=== PATIENT | female | born 1975 | race Caucasian/White ===

== ENCOUNTER → 2021-09-01 | Emergency (ER) | payer MEDICAID ==
[~2021-09-01] MED LIST: HYDR-4353 PO
== END | disposition left against medical advice (07) ==
LOC: ER 23:10
DX: Z53.21 Procedure and treatment not carried out due to patient leaving prior to being seen by health care provider (principal)

== ENCOUNTER 2022-09-30 10:04 | Emergency (ER) | payer MEDICAID ==
[~2022-09-30] VITALS: Ht 162.6 cm; Wt 75.0 kg
[2022-09-30 10:08] VITALS: BP 128/90
[2022-09-30] MEDS ORDERED: DOXY100C77 PO (10:45)
[2022-09-30] MEDS ORDERED: MUPI22OI30 TOP (10:45)
== END 2022-09-30 11:06 | disposition home or self-care (01) ==
LOC: ER 10:04
DX: R21 Rash and other nonspecific skin eruption (principal); E03.9 Hypothyroidism, unspecified; F41.9 Anxiety disorder, unspecified; F12.90 Cannabis use, unspecified, uncomplicated; Z98.890 Other specified postprocedural states; Z88.0 Allergy status to penicillin; Z88.8 Allergy status to other drugs, medicaments and biological substances; Z79.2 Long term (current) use of antibiotics; Z79.899 Other long term (current) drug therapy
CPT/HCPCS: 99283

== ENCOUNTER 2023-04-10 16:18 | Emergency (ER) | payer MEDICAID ==
[~2023-04-10] VITALS: Ht 162.6 cm; Wt 82.8 kg
[2023-04-10 16:41] VITALS: BP 120/87; PULSE 79; RESP 16; O2SAT 98
[2023-04-10] MEDS ORDERED: ibuprofen tablet 400 MG TABLET PO ONE (18:30)
[2023-04-10] MEDS ORDERED: IBUP-1984 PO (18:39)
== END 2023-04-10 19:05 | disposition home or self-care (01) ==
LOC: ER 16:18
DX: S93.402A Sprain of unspecified ligament of left ankle, initial encounter (principal); F17.200 Nicotine dependence, unspecified, uncomplicated; F12.90 Cannabis use, unspecified, uncomplicated; Z98.891 History of uterine scar from previous surgery; Z88.0 Allergy status to penicillin; Z88.8 Allergy status to other drugs, medicaments and biological substances; Z79.899 Other long term (current) drug therapy; W10.8XXA Fall (on) (from) other stairs and steps, initial encounter; Z91.81 History of falling; Y93.01 Activity, walking, marching and hiking; Y92.89 Other specified places as the place of occurrence of the external cause; Y99.8 Other external cause status
CPT/HCPCS: 73610; 99284; L4360

== ENCOUNTER 2023-09-23 17:09 | Emergency (ER) | payer SELFPAY ==
[~2023-09-23] VITALS: Ht 162.6 cm; Wt 84.5 kg
[2023-09-23] MEDS ORDERED: CEPH-585 PO (18:42)
[2023-09-23] MEDS ORDERED: SULF1TAB49 PO (18:42)
[2023-09-23 18:54] VITALS: BP 130/66; PULSE 88; RESP 18; TEMP 99.2; O2SAT 96
== END 2023-09-23 18:56 | disposition home or self-care (01) ==
LOC: ER 17:10
DX: S50.362A Insect bite (nonvenomous) of left elbow, initial encounter (principal); L03.114 Cellulitis of left upper limb; E03.9 Hypothyroidism, unspecified; F41.9 Anxiety disorder, unspecified; Z88.0 Allergy status to penicillin; Z79.899 Other long term (current) drug therapy; W57.XXXA Bitten or stung by nonvenomous insect and other nonvenomous arthropods, initial encounter; Y93.89 Activity, other specified; Y92.89 Other specified places as the place of occurrence of the external cause; Y99.8 Other external cause status
CPT/HCPCS: 99283

== ENCOUNTER 2024-11-04 08:26 | Emergency (ER) | payer MEDICAID ==
[~2024-11-04] VITALS: Ht 162.6 cm; Wt 88.5 kg
[2024-11-04 08:30] VITALS: BP 157/90; TEMP 98.5
[2024-11-04] MEDS ORDERED: AZIT250T83 PO (09:09)
[2024-11-04] MEDS ORDERED: ALBU8HFA INH (09:11)
[2024-11-04] MEDS ORDERED: PRED10TA23 PO (09:11)
[2024-11-04] MEDS ORDERED: ERYT1OIN6 EACHEYE (09:12)
[2024-11-04] MEDS: ipratropium/albuterol 3ml nebule NEB ONE (09:22)
[2024-11-04 09:24] VITALS: PULSE 85; PULSE 91; RESP 16; O2SAT 100; O2SAT 98
== END 2024-11-04 09:33 | disposition home or self-care (01) ==
LOC: ER 08:26
DX: J32.9 Chronic sinusitis, unspecified (principal); H10.89 Other conjunctivitis; J22 Unspecified acute lower respiratory infection; F12.90 Cannabis use, unspecified, uncomplicated; F41.9 Anxiety disorder, unspecified; E07.9 Disorder of thyroid, unspecified; E03.9 Hypothyroidism, unspecified; Z88.0 Allergy status to penicillin; Z88.8 Allergy status to other drugs, medicaments and biological substances; Z79.899 Other long term (current) drug therapy; Z98.890 Other specified postprocedural states; Z20.822 Contact with and (suspected) exposure to COVID-19
CPT/HCPCS: 36415; 87502; 87503; 87811; 94640; 94760; 99283

== ENCOUNTER 2025-03-12 16:18 | Inpatient (IN) | payer MEDICAID ==
[~2025-03-12] VITALS: Ht 162.6 cm; Wt 100.0 kg
--- NOTE | 2025-03-12 16:47 | RADIOLOGY REPORT ---
CHEST RADIOGRAPH Indication: CP Technique: Single frontal view of the chest was obtained Comparison: None FINDINGS: Lines and Tubes: None Lungs: No focal consolidation. Pleura: No effusion. No pneumothorax. Cardiomediastinal contours: Heart size is within normal limits. Mild prominence of the pulmonary liu nk. Bones: No acute osseous abnormality. IMPRESSION: prominence of the pulmonary trunk. Correlate for pulmonary arterial hypertension. Otherwise, no acu te cardiopulmonary disease
--- NOTE | 2025-03-12 16:55 | Physician Documentation ---
History of Present Illness ~ Chief Complaint: Extremity Swelling Stated Complaint: SWELLING IN LEGS/FINGER Time Seen by MD: 19:24 Primary Medical Doctor: [facility] This is a 49-year-old female who presents with progressively worsening edema to all extremities along with worsening shortness of breath over the last several months. Patient reports shortness of breath is worse with exertion, though patient reports no shortness of breath with lying flat. Patient reports no chest pain or cardiac history. History as above. Patient presents to the emergency room with gradual increase of shortness of breath in bilateral dependent edema. She does not have a primary care provider. She does smoke. She denies any other history. Positive family history of heart disease. Tetanus witin 5 years: Yes Medication Reconciliation Allergies: Coded Allergies: Penicillins (Verified Allergy, Unknown, TONGUE SWELLING, 03/12/25) pregabalin (Verified Allergy, Unknown, hives, 03/12/25) Scheduled PRN Hydrocodone Bit/Acetaminophen ([place] 10-325 Tablet), 1 TAB PO Q6H PRN for pain Past Medical History Past Medical History: No Pertinent History, Hypothyroidism, Thyroid (unspecified), Anxiety Past Surgical History: Alcohol Use: None Drug Use: marijuana Lives In: Home Review of Systems ROS All review of systems negative except as per HPI Physical Exam Vital Signs: Temperature: 97.8, Source: Temporal, Heart Rate: 89, Respiratory Rate: 18, BP: 159/78, Pulse Oximetry: 94, Weight: 100.400 Physical Exam General: Patient is awake, alert, oriented x4 , anxious, tearful Head: Normocephalic and atraumatic. Eyes: Conjunctival normal. EOMI. PERRL. ENT: Mucous membranes moist. Neck: Supple, trachea is midline. Chest: Clear to auscultation bilaterally without rales, rhonchi, or wheezes. There is no accessory muscle use or retractions. Cardiac: RRR without murmurs, gallops, or rubs. Abd: Soft, nondistended, nontender, with normoactive bowel sounds. No guarding, rebound, or rigidity. Extremities: Normal strength. Normal range of motion. Significant dependent tense edema bilaterally Progress Results/Orders Results/Orders Orders - CHRIS VIRAMONTES MD Hospitalist (03/12/25 19:43) Fill Out Med Reconciliation (03/12/25 19:43) Vital Signs 03/12/25 03/12/25 03/12/25 16:28 18:04 18:15 Temp 97.8 97.8 Pulse 89 74 Resp 18 12 16 B/P (MAP) 159/78 128/99 (109) Pulse Ox 94 96 Laboratory Tests Test 03/12/25 16:44 03/12/25 18:11 03/12/25 19:33 White Blood Count 10.6 Red Blood Count 5.08 Hemoglobin 15.8 Hematocrit 48.2 H Mean Corpuscular Volume 94.9 Mean Corpuscular Hemoglobin 31.2 H Mean Corpuscular Hemoglobin Concent 32.8 L Red Cell Distribution Width 14.5 Platelet Count 271 Mean Platelet Volume 7.8 Neutrophils (%) (Auto) 71.5 Lymphocytes (%) (Auto) 20.8 L Monocytes (%) (Auto) 6.0 Eosinophils (%) (Auto) 0.6 Basophils (%) (Auto) 1.1 H Neutrophils # (Auto) 7.6 Lymphocytes # (Auto) 2.2 Monocytes # (Auto) 0.6 Eosinophils # (Auto) 0.1 Basophils # (Auto) 0.1 CBC Comment Sodium Level 139 Potassium Level 4.1 Chloride Level 105 Carbon Dioxide Level 26.5 Anion Gap 8 Blood Urea Nitrogen 12 Creatinine 1.06 H Estimated GFR/1.73 m2 55 BUN/Creatinine Ratio 11.3 Glucose Level 115 H Calcium Level 8.8 Troponin I High Sensitivity 18 18 19 Pro-B-Type Natriuretic Peptide 3429 H Albumin 3.2 L Chemistry Comments Troponin I High Sens Percent Delta 0 5 Troponin I Hi Sens Absolute Change 0 1 EKG/XRAY/CT/US/VASC/MRI EKG : Additional Comment EKG interpreted by myself shows time of 1809, rate 76, sinus rhythm, normal axis, no ST changes Chest X-Ray : Additional Comments Exam: CHEST,SINGLE VIEW CHEST RADIOGRAPH Indication: CP Technique: Single frontal view of the chest was obtained Comparison: None FINDINGS: Lines and Tubes: None Lungs: No focal consolidation. Pleura: No effusion. No pneumothorax. Cardiomediastinal contours: Heart size is within normal limits. Mild prominence of the pulmonary trunk. Bones: No acute osseous abnormality. IMPRESSION: prominence of the pulmonary trunk. Correlate for pulmonary arterial hypertension. Otherwise, no acute cardiopulmonary disease Medical Decision Making Findings Patient presented to the emergency room with swelling and shortness of breath as per HPI. Differentials include but are not limited to CHF, cellulitis, DVT, venous insufficiency therefore emergent labs and imaging indicated. Significant elevation of patient's BNP along with her complaints of shortness of breath I do believe she is developing congestive heart failure. Lasix initiated. She does not have a primary care and he had not feel he would do well on outpatient basis. Departure Admitted to Inpatient Unit: yes, to hospitalist Impression: Primary Impression: New onset of congestive heart failure Condition: Guarded Referrals: NO PRIMARY CARE PROVIDER (PCP) Signature Scribe Signature: No scribe Attestation: The note accurately reflects work and decisions made by me.Chris iVramontes MD 03/12/25 19:42 [facility] VALDE[facility] Mar 12, 2025 16:55 CHRIS VIRAMONTES MD Mar 12, 2025 19:42
[2025-03-12 17:45] LABS: MEAN PLATELET VOLUME 7.8 FL (7.4-10.4); RED CELL DISTRIBUTION WIDTH 14.5 % (11.5-14.5)
[2025-03-12 18:05] LABS: CREATININE 1.06 MG/DL (0.40-0.90); PRO BRAIN NATRIURETIC PEPTIDE 3429 PG/ML (0-125); TOTAL CARBON DIOXIDE 26.5 MMOL/L (24-32); eCRCL 55 ML/MIN; eGFR 55 ML/MIN
--- NOTE | 2025-03-12 18:11 | ELECTROCARDIOGRAPH REPORT ---
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
[2025-03-12 22:09] VITALS: BP 132/97; PULSE 104; TEMP 97.7; O2SAT 98
[2025-03-12 22:16] VITALS: RESP 19; O2SAT 98
[2025-03-12] MEDS ORDERED: magnesium sulf-water 4G/100mL 100 ML IV PRN (22:30)
[2025-03-12] MEDS ORDERED: magnesium hydroxide 30ml (MOM) UD suspension PO PRN (22:30)
[2025-03-12] MEDS ORDERED: mag hydrox/Alum hydrox/simeth 30ml oral suspension PO PRN (22:30)
[2025-03-12] MEDS ORDERED: PERFLUTREN PROTEIN-A MICROSPHR (Optison) 0.22 MG/ML 3ML VIAL IV PRN (22:30)
[2025-03-12] MEDS ORDERED: HYDROcodone/acetaminophen 5mg/325mg tablet PO PRN (22:30)
[2025-03-12] MEDS ORDERED: potassium Cl 20 mEq SR tablet PO PRN ×2 (22:30)
[2025-03-12] MEDS ORDERED: magnesium sulf-water 2g/50mL 50 ML IV PRN (22:30)
[2025-03-12] MEDS ORDERED: ondansetron/PF 4mg/2ml inj IV PRN (22:30)
[2025-03-12] MEDS ORDERED: potassium Cl 40MEQ/1/2NS 520ml 520 ML IV PRN (22:30)
[2025-03-12] MEDS ORDERED: magnesium Cl slow-release 64mg tablet PO PRN (22:30)
--- NOTE | 2025-03-12 22:39 | HISTORY AND PHYSICAL-Residence ---
History & Physical Providers to CC Resident Creating Document: GABRIEL ZUNIGA, RES CC: TIO LOPEZ MD ~ History of Present Illness Primary Medical Doctor: [facility] Reason for Admit\Complaint: Swollen legs History of Present Illness A 49-year-old noncompliant female with past medical history of hypothyroidism presented to the ED in view of swelling of bilateral legs since several weeks. Patient endorses shortness of breaths on walking for less than 50 ft since several weeks that has gradually worsened. Patient endorses palpitations that randomly starts as a flutter associated with anxiety episodes. Patient endorses dizziness, feels like passing out and has blacking of the lesion. Patient endorses nausea, fatigue, dry cough. Patient had gained weight in the recent time and can not fit in her previous shoe size or closed size. Patient denies chest pain, orthopnea, PND. Patient has stopped taking levothyroxine over a year ago. 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 Primary care is at [facility] Smoking: Non-Smoker Alcohol Use: None Drug Use: Marijuana Lives In: Home ROS ROS All other systems reviewed in full and negative except for the pertinent positives mentioned in the HPI Exam Vitals: Vital Signs Date Time Temp Pulse Resp B/P (MAP) Pulse Ox O2 Delivery O2 Flow Rate FiO2 03/12/25 22:16 19 98 Room Air 03/12/25 22:09 97.7 104 132/97 (109) General: General: Obese woman, Alert, awake, oriented, not in acute distress HEENT: PERRLA, no icterus, pallor, lymphadenopathy, carotid bruit Respiratory system: Bilateral vesicular breath sounds heard, bilateral basal crackles heard CVS: S1-S2 heard, grade 3/6 holosystolic murmur present in the mitral tricuspid area GI: Soft, nontender, no organomegaly, no guarding/rigidity, bowel sounds present Neuro: No focal neurological deficits present Extremities: Bilateral 3+ pitting edema to the knee, pustule on the right lower extremity Skin: Warm and dry Diagnostic Data Last Recorded Lab Results: 03/12/25 1644 03/12/25 1644 Advance Care Planning Advanced Care plannin - 30 Minutes (I spent 20 minutes discussing various resuscitative measures and the patient decided to be full code) Additional Plan Assessment: 49-year-old female with noncompliance and hypothyroidism presented to the ED in view of bilateral lower extremity swelling. Patient is admitted for the evaluation management of new onset heart failure. Plan: Possible new onset heart failure, pending echo ACC Stage C/ NYHA Class III Elevated proBNP Possible underlying COPD, undiagnosed Chest x-ray: prominence of the pulmonary trunk. Correlate for pulmonary arterial hypertension. Follow up with A1c, lipid panel, echo, CT chest Received one dose of IV Lasix 60 mg Evaluate for pulmonary arterial hypertension and right heart failure Continue IV Lasix 60 mg b.i.d. Consider optimization with GDM T Strict Is&Os Sodium restricted diet Fluid restriction to 1.5 L Patient might benefit from Cardiology consultation in view of new onset heart failure and based on ejection fraction and wall motion changes patient might also require angiogram Hypothyroidism, noncompliant Follow up with TSH Not on any home levothyroxine Used to be on 75 mcg, stopped one year ago Started on 50 mcg in view of cardiologic manifestations Prerenal BRANDIN probably secondary to renal tubular stasis Elevated creatinine Continue to monitor BMP Code status: Full code Diet: Heart healthy, sodium restricted DVT prophylaxis: Heparin 5000 subQ b.i.d. Disposition: Admit to PCU, follow up with repeat echo and consider optimization with GDMT Gabriel Zuniga MD Internal Medicine, PGY 2 Date of Service: Mar 12, 2025 Billing Provider: TIO LOPEZ MD Common Visit Codes: 54655-LARZOLI INP/OBS CARE (HIGH) Assessment/Plan Assessment Evaluated with the help of residents Discussed the gold e with them Reviewed notes by Dr.Siva Trev ZAMORA Agree with her assessments and plans GABRIEL ZUNIGA, RES Mar 12, 2025 22:39 TIO LOPEZ MD Mar 13, 2025 04:04
[2025-03-12] MEDS: furosemide 10 MG/1 ML 10ml inj IV ONE (23:16)
[2025-03-12 23:38] LABS: PRO BRAIN NATRIURETIC PEPTIDE 2948.0 PG/ML (0-125)
[2025-03-13] VITALS (9 sets, daily range): BP systolic 101–117; BP diastolic 64–76; PULSE 65–91; RESP 10–21; TEMP 97.3–98.8; O2SAT 94–99
[2025-03-13 06:44] LABS: MEAN PLATELET VOLUME 7.8 FL (7.4-10.4); RED CELL DISTRIBUTION WIDTH 14.3 % (11.5-14.5)
[2025-03-13] MEDS: levoTHYROXINE 25mcg tablet PO SCH (07:00)
[2025-03-13 07:01] LABS: CHOL/HDL RATIO 4.0 (0.00-4.99); CREATININE 0.98 MG/DL (0.40-0.90); LDL CHOLESTEROL 104 MG/DL (50-100); TOTAL CARBON DIOXIDE 26.8 MMOL/L (24-32); eCRCL 60 ML/MIN; eGFR 60 ML/MIN
[2025-03-13] MEDS: K and/or MAG REPLACEMENT MC SCH (07:45)
[2025-03-13] MEDS: docusate sod 100mg capsule PO SCH (07:48)
[2025-03-13] MEDS: heparin, porcine 5000 units/ml vial SQ SCH (07:49)
[2025-03-13] MEDS: furosemide 10 MG/1 ML 10ml inj IV SCH ×2 (08:24→11:19)
--- NOTE | 2025-03-13 10:54 | RADIOLOGY REPORT ---
Procedure: CT CT CHEST Reason for study/Clinical History: COPD/interstitial lung disease Comparison Study: None TECHNIQUE: Multidetector CT of the chest was performed from the lung apices to the upper abdomen with out the use of intravenous contract. Axial, coronal and sagittal multiplanar reformats were performed . Radiation Dose Information: CT Dose: CTDI volume is 17.9 mGy. Dose-length product is 619 mGy*cm The dose indicators for CT are the volume Computed Tomography (CT) Dose Index (CTDIvol) and the Dose Length Product (DLP), and are measured in units of mGy and mGy-cm, respectively. These indicators are not patient dose, but values generated from the CT scanner acquisition factors. The report includes radiation exposure data for exposures received during this examination. FINDINGS: Lower neck: Unremarkable. Lungs: No focal consolidation. No suspicious pulmonary nodule. Heart/Vascular Structures: Cardiomegaly. Enlarged main pulmonary artery measures 4.4 cm. Lymph Nodes: No adenopathy Pleura: No pleural effusion or significant pneumothorax. Musculoskeletal: No acute osseous abnormality. Soft tissues: Normal. Upper abdomen: Innumerable bilobar hepatic hypoattenuating lesions suspicious for metastatic disease. IMPRESSION: No acute intrathoracic abnormality. Innumerable bilobar hepatic hypoattenuating lesions suspicious for metastatic disease. Radiation optimization: All CT scans at this facility use at least one of these dose optimization marifer hniques: automated exposure control mA and/or kV adjustment per patient size (includes targeted exam s where dose is matched to clinical indication) or iterative reconstruction.
[2025-03-13] MEDS ORDERED: iohexol 300mg/ml 100ml inj. ONE (11:45)
[2025-03-13 12:37] LABS: LEUKOCYTE ESTERASE ,URINE NEGATIVE (Neg); NITRITES, URINE NEGATIVE (Neg); OCCULT BLOOD,URINE NEGATIVE (Neg)
[2025-03-13 12:43] LABS: UA COLLECTION TYPE VOIDED
--- NOTE | 2025-03-13 12:45 | CONSULTATION REPORT ---
History of Present Illness Providers to CC CC: PATRICK CASTELLANOS MD ~ Reason for Admit\Admit Dx: Cardiology consultation Refering MD: BEN History of Present Illness This is a 49-year-old female who presented secondary to shortness for breath and lower extremity edema. She states she has had edema that has been worsening as well as shortness for breath. Shortness for breath has been ongoing for months. She reports dyspnea on exertion with walking short distances on flat ground. NYHA class three symptoms. She furthermore has complaints of her fingers turning more purple in color onset was June 2024. She follows with [facility]. When asked, she did admit to daily smoking of methamphetamine. She is very tearful during her exam. Allergies: Coded Allergies: Penicillins (Verified Allergy, Unknown, TONGUE SWELLING, 03/12/25) pregabalin (Verified Allergy, Unknown, hives, 03/12/25) Active prescriptions Lasix 40 mg IV b.i.d. Levothyroxine 50 mcg daily Heparin 5000 units subQ q.12 hours Home Medications Home Medications Active Past Medical History Medical History Comment Hypothyroidism Past Surgical History Surgical History Comment No surgical history Past Family History Family History: CAD Past Social History Social History Comment Patient reports smoking tobacco products. She uses meth daily by smoking it. Denies ever using IV drugs. Does not drink alcohol. Physical Exam Last Vital Signs Recorded: RN Vital Signs have been reviewed: Yes, Temperature: 98.5, Source: Oral, Heart Rate: 87, Respiratory Rate: 17, BP: 108/68, Pulse Oximetry: 97, Weight: 100.000 Physical Exam General: Awake, alert, oriented. No apparent distress Neck: Supple. Normal range of motion. No JVD Respiratory: Lungs are clear to auscultation bilaterally. No respiratory distress. Chest: Normal shape and size. No accessory muscle use. Cardiovascular: Regular rate and rhythm. S1-S2. +murmur LSB. no gallop, rub. Gastrointestinal: Abdomen is soft. Nontender to palpation. Bowel sounds present. Extremities: + edema to the extremities that has about plus one. There is also some sores noted to the right lower extremity. Fingers with peripheral discoloration. Radial pulses plus two. Neurologic: Alert and oriented x4. Nonfocal Psychiatric: Normal mood and affect. Skin: Normal color. Warm and dry. Review of Systems ROS Patient complains of shortness for breath, dyspnea on exertion and worsening lower extremity edema. Skin discoloration to the fingers. Results EKG EKG EKG sinus rhythm peaked T-waves consistent with RA enlargement. Nonspecific ST changes Echocardiogram Echocardiogram Preliminary echocardiogram with preserved LVEF. RV severely dilated with moderately reduced function. RVSP 125 mm of mercury with severe TR. Diagram Lab Result Diagram: 03/13/25 0532 03/13/25531 Assessment/Plan Additional Plan Right ventricular failure Suspected severe pulmonary hypertension --recommend rule out pulmonary embolism given shortness for breath and RV failure. This was discussed with primary physician, Dr. Lara. Patient has already had a CTA of the abdomen pelvis just prior to consultation. Timing of PE evaluation per Dr. Lara --suspect pulmonary hypertension. May be pulmonary arterial hypertension secondary to methamphetamine use. She will need further outpatient workup. Labs: CHOLO, RF, hiv, hepatitis serology. needs PFTs +DLCO. She was educated that she absolutely needs to quit using methamphetamine. Risks of reviewed. She will need outpatient referral to [facility], [facility] as it is the closest. --continue Lasix. Strict intake and output. Keep euvolemic. Question of liver lesions. Dedicated CTA is pending. --hospitalist managing. Case discussed with Dr. Roxanna Castellanos. In agreement with above. Supervising MD Supervising Physician: JARED Conn NP Mar 13, 2025 12:45
[2025-03-13 12:49] LABS: URINE AMPHETAMINE SCREEN POSITIVE (Neg); URINE BARBITUATE SCREEN NEGATIVE (Neg); URINE BENZODIAZEPINES SCREEN NEGATIVE (Neg); URINE COCAINE SCREEN NEGATIVE (Neg); URINE METHADONE SCREEN NEGATIVE (Neg); URINE OPIATE SCREEN NEGATIVE (Neg); URINE PHENCYCLIDINE SCREEN NEGATIVE (Neg)
[2025-03-13 12:52] LABS: MUCUS STRANDS FEW /LPF (Neg); SQUAMOUS EPITHELIAL CELL,UR FEW /LPF (FEW)
--- NOTE | 2025-03-13 13:14 | RADIOLOGY REPORT ---
Exam: CT CT ABDOMEN PELVIS W/ IV CONTRAST History: abnormal CT chest with lesions in liver Comparison Study: CT chest 03/13/2025 TECHNIQUE: Multidetector CT of the abdomen pelvis was performed with contrast in arterial and portal venous phases. Axial, coronal and sagittal multiplanar reformats were obtained from the axial data se t by the technologist. Radiation Dose Information: CT Dose: CTDI volume is 31.44 mGy. Dose-length product is 2460.18 mGy*cm FINDINGS: Mild hepatomegaly. The heterogeneous appearance of the liver noted on the noncontrast CT chest is red emonstrated but less conspicuous on the arterial and venous phases without any areas of masslike enha ncement. Spleen, gallbladder, pancreas and adrenal glands unremarkable. Kidneys , ureters and urinary bladder unremarkable. Uterus and adnexa unremarkable. Stomach is unremarkable. Mild wall Thickening of proximal small bowel loops. Remainder of the small bowel loops unremarkable. Appendix is not definitely visualized. Partial distention of the rectum. Otherwise, the large bowel is unremarkable. No evidence of intraperitoneal free air or free fluid. No evidence of aortic aneurysm or dissection. No significant lymphadenopathy. Mild body wall edema. Small fat containing umbilical hernia. Bilateral L5 chronic pars defect with gr erin 2 anterolisthesis of L5 on S1. Grade 1 anterolisthesis of L4 on L5. IMPRESSION: The lung bases are clear. Heart size is within normal limits. Trace pericardial effusion. Heterogene ous appearance of the liver with no discrete enhancing masses noted on the arterial and portal venous phases. Finding may be from fatty infiltration. MRI with and without contrast should be considered for further evaluation. Mild wall Thickening of proximal small bowel loops which may be due to inadequate distention with ent eritis not excluded. Mild hepatomegaly.
--- NOTE | 2025-03-13 13:41 | CARDIOLOGY REPORT ---
APPROVED REPORT EXAM: Comprehensive 2D, Doppler, and color-flow Echocardiogram. 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 143.6 cm/s AoV VTI 21.7 cm AO Peak GR. 8.2 mmHg AO Mean GR. 5 mmHg LVOT VTI 17.20 cm LVOT Peak Ceasar. 108.5 cm/s JUAN(VTI)/BSA 2.23 cm2/m2 JUAN (VTI) 2.23 cm2 Mitral Valve MV E Velocity 40.1 cm/s MV Peak Gr. 1 mmHg MV DECEL TIME 212 ms MV A Velocity 78.4 cm/s MV PHT 64 ms E/A Ratio 0.5 MVA (PHT) 3.44 cm2 MV VMax55.5 cm/s Tricuspid Valve TR P. Velocity 525 cm/s RAP ESTIMATE 15 mmHg TR Peak Gr. 110 mmHg RVSP 125 mmHg LEFT VENTRICLE Normal LV size and function. Moderate concentric hypertrophy. Septal flattening consistent with RV pr essure/volume overload. Overall LVEF is 65%. RIGHT VENTRICLE RV is severely dilated in size with at least moderatey reduced function. Estimated PA systolic pressu re of 125 mm of mercury. ATRIA The left atrium size is normal. AORTIC VALVE Trileaflet AV appears mildly sclerotic without stenosis. No insufficiency. MITRAL VALVE Mild MV annular calcification without stenosis.Trace regurgitation. TRICUSPID VALVE TV appears structurally normal with severe regurgitation with flow reversal. PULMONIC VALVE Normal PV without stenosis, physiologic insufficiency. GREAT VESSELS The aortic root is normal in size. IVC is dilated and collapses greater than 50% with inspiration. PERICARDIUM Normal pericardium. No effusion. Other Information Study Quality: Adequate, but difficult apicals due to displacement from RVE. Conclusion Overall LVEF is 65%. Normal LV size and function. Moderate concentric hypertrophy. Septal flattening consistent with RV p ressure/volume overload. Trileaflet AV appears mildly sclerotic without stenosis. No insufficiency. Mild MV annular calcification without stenosis.Trace regurgitation. TV appears structurally normal with severe regurgitation with flow reversal. Normal pericardium. No effusion.
--- NOTE | 2025-03-13 17:02 | RADIOLOGY REPORT ---
Indication: SOB , suspected PE Technique: CT axial images of the chest are obtained with intravenous contrast per CT angiogram prot ocol. Coronal and sagittal reformats were obtained. Radiation Dose Information: CTDI volume is 21.5 mGy. Dose-length product is 718 mGy*cm Comparison: 03/13/2025 CT chest without contrast, CT abdomen pelvis with contrast FINDINGS: No filling defect within the main left right pulmonary arteries. Enlargement of the main pulmonary ar junie measuring 3.9 cm. Reflux of contrast into the hepatic vein/IVC. Trachea patent. No pneumothorax. No pulmonary airspace consolidation. No pleural effusion. Heart normal in size. Tiny pericardial effusion. No supraclavicular or axillary lymphadenopathy. There is no aggressive osseous process. Heterogeneous appearance of the liver, hepatic steatosis. IMPRESSION: No evidence for large pulmonary embolism. Enlarged main pulmonary artery and reflux of contrast into hepatic veins and IVC suggesting underlyin g right heart dysfunction. Correlate with echocardiography. Heterogeneous appearance of the liver and hepatic steatosis. Recommend multiphasic MRI abdomen with and without contrast to further characterize given the previous findings of the CT chest without cont rast and CT abdomen pelvis with contrast
--- NOTE | 2025-03-13 19:46 | PROGRESS NOTE ---
Daily Progress Note Providers to CC ~ Antibiotic Timeout Antibiotic Ordered?: No Subjective Patient was seen in her room she was on room air saturating well. She came due to her concern regarding leg swelling diagnosed with new onset congestive heart failure. CT chest results showed Innumerable bilobar hepatic hypoattenuating lesions suspicious for metastatic disease. Due to which CT abdomen and pelvis ordered which was unremarkable for any suspicious metastatic lesions over liver area. Cardiology consult requested from Cardiology team and they evaluated the patient for new onset congestive heart failure. Patient's urine drug screen positive for meth. Objective Vital Signs Date Time Temp Pulse Resp B/P (MAP) Pulse Ox O2 Delivery O2 Flow Rate FiO2 03/13/25 15:00 97.6 77 15 104/64 (77) 94 Room Air Result Diagram: 03/13/25 0532 03/13/25 0532 General-patient not in any acute distress, alert awake, ill-appearing , obese HEENT-atraumatic normocephalic, neck supple without elevated JVD, no thyromegaly or carotid bruit. No lymphadenopathy bilaterally. Eyes-no icterus or pallor seen in eyes Chest- decreased lung sounds to auscultation bilaterally over lung base, breathing nonlabored no tachypnea, no wheezing, Heart-S1-S2 normal, regular heart rate no murmur Abdomen bowel sounds positive on auscultation, soft nondistended nontender no guarding, no rigidity Skin no active skin rash Neurology-grossly intact, nonfocal alert awake oriented Extremity- 1 plus pedal edema bilaterally , able to move all 4 extremities Psychiatry - patient is not confused or agitated cooperated during physical examination Coagulation Studies Laboratory Tests Test 03/13/25 15:37 D-Dimer 0.73 MG/L FEU (0-0.50) H D-Dimer Comment Problem\\Assessment\\Plan 49-year-old female with noncompliance and hypothyroidism presented to the ED in view of bilateral lower extremity swelling. Patient is admitted for the evaluation management of new onset heart failure. Plan: Possible new onset heart failure, pending echo ACC Stage C/ NYHA Class III Elevated proBNP Possible underlying COPD, undiagnosed Chest x-ray: prominence of the pulmonary trunk. Correlate for pulmonary arterial hypertension. Follow up with A1c, lipid panel, echo, CT chest Received one dose of IV Lasix 60 mg Evaluate for pulmonary arterial hypertension and right heart failure Continue IV Lasix 60 mg b.i.d. Consider optimization with GDM T Strict Is&Os Sodium restricted diet Fluid restriction to 1.5 L Cardiology consultation requested from Dr. Roxanna Castellanos and Cardiology team who evaluated the patient suspect right ventricular failure, severe pulmonary hypertension. Recommended rule out pulmonary embolism given the shortness of breaths and right ventricular failure.suspect pulmonary hypertension. As per cardiology team" May be pulmonary arterial hypertension secondary to methamphetamine use. She will need further outpatient workup. Labs: CHOLO, RF, hiv, hepatitis serology. needs PFTs +DLCO. She was educated that she absolutely needs to quit using methamphetamine. Risks of reviewed. She will need outpatient referral to Pulmonary hypertension Center, likely [facility] as it is the closest. --continue Lasix. Strict intake and output. Keep euvolemic." Hypothyroidism, noncompliant TSH 4.37 continue on 50 mcg in view of cardiologic manifestations Prerenal BRANDIN probably secondary to renal tubular stasis Elevated creatinine will Continue to monitor BMP Code status: Full code Diet: Heart healthy, sodium restricted DVT prophylaxis: Heparin 5000 subQ b.i.d. Patient's current condition is guarded we will continue to follow patient in a.m. Date of Service: Mar 13, 2025 Billing Provider: HERBERT WEBBER MD Common Visit Codes: [id number] INP/OBS CARE(HIGH) HERBERT WEBBER MD Mar 13, 2025 19:46
[2025-03-14 02:00] VITALS: BP 121/78; PULSE 79; RESP 13; TEMP 97.1; O2SAT 98
[2025-03-14 06:00] VITALS: BP 116/80; PULSE 77; RESP 17; TEMP 98; O2SAT 96
[2025-03-14 07:22] LABS: MEAN PLATELET VOLUME 7.7 FL (7.4-10.4); RED CELL DISTRIBUTION WIDTH 14.0 % (11.5-14.5)
[2025-03-14 07:51] LABS: CREATININE 1.16 MG/DL (0.40-0.90); TOTAL CARBON DIOXIDE 34.0 MMOL/L (24-32); eCRCL 51 ML/MIN; eGFR 50 ML/MIN
[2025-03-14 08:00] VITALS: RESP 17; O2SAT 96
[2025-03-14 11:00] VITALS: BP 120/77; PULSE 79; RESP 17; TEMP 97.7; O2SAT 97
[2025-03-14 15:00] VITALS: BP 105/80; PULSE 74; RESP 16; TEMP 98.4; O2SAT 95
[2025-03-14] MEDS ORDERED: LISI10TA27 PO (15:17)
[2025-03-14] MEDS ORDERED: FURO20TA4 PO (15:17)
[2025-03-14] MEDS ORDERED: LEVO125T8 PO (20:49)
--- NOTE | 2025-03-14 20:50 | DISCHARGE SUMMARY ---
Discharge Summary Providers to CC ~ Discharge Summary Admission Diagnosis: NEW ONSET HEART FAILURE Hospital Course DATE OF ADMISSION: March 12, 2025 DATE OF DISCHARGE: March 14, 2025 CBC TESTING DONE ON MARCH 14, 2025 WBC 8.3 HEMOGLOBIN 16.0 HEMATOCRIT 47.8 PLATELET COUNT 283. Serum chemistry done on March 14, 2025 sodium 143 potassium 3.8 creatinine 1.16 GFR 50 hemoglobin A1c 6.0 lactic acid 1.2 TSH 4.37 proBNP 2 948 mildly elevated triglyceride 141 LDL 104 total cholesterol 170. Toxicology screen positive for meth use. Urine testing negative for any UTI. Blood culture showed no growth Patient had CTA angiogram, abdomen and pelvis CT scan CT chest and echocardiogram and chest x-ray done during hospitalization. Please see the actual results in more details in electronic medical health records. All diagnostic workup reviewed and discussed with the patient Discharge Diagnosis\\Comment: new onset diastolic heart failure with preserved ejection Pulmonary HTN Possible underlying COPD, undiagnosed METH use Operations\\Procedures: None Consultants: Dr. Erendira Castellanos Complications: None Condition on DC: Stable New Medications: Furosemide (Furosemide) 20 Mg Tablet 1 TAB PO DAILY for 30 Days, #30 TAB 0 Refills Lisinopril (Lisinopril) 10 Mg Tablet 10 MG PO DAILY for 30 Days, #30 TAB Discharge Summary: 49-year-old female with noncompliance and hypothyroidism presented to the ED in view of bilateral lower extremity swelling. Patient is admitted for the evaluation management of new onset heart failure. Plan: new onset diastolic heart failure Possible underlying COPD, pulmonary hypertension Chest x-ray: prominence of the pulmonary trunk. Correlate for pulmonary arterial hypertension. we Followed up with A1c, lipid panel, echo, CT chest Received one dose of IV Lasix 60 mg Evaluated for pulmonary arterial hypertension and right heart failure Continue IV Lasix 60 mg b.i.d. Consider optimization with GDM T Strict Is&Os Sodium restricted diet Fluid restriction to 1.5 L Cardiology consultation requested from Dr. Roxanna Castellanos and Cardiology team who evaluated the patient suspect right ventricular failure, severe pulmonary hypert ension. Recommended rule out pulmonary embolism given the shortness of breaths and right ventricular failure.suspect pulmonary hypertension. As per cardiology team" May be pulmonary arterial hypertension secondary to methamphetamine use. She will need further outpatient workup. Labs: CHOLO, RF, hiv, hepatitis serology. needs PFTs +DLCO. She was educated that she absolutely needs to quit using methamphetamine. Risks of reviewed. She will need outpatient referral to Pulmonary hypertension Center, likely [facility] as it is the closest. --continue Lasix. Strict intake and output. Keep euvolemic." Hypothyroidism, noncompliant TSH 4.37 continue on 50 mcg in view of cardiologic manifestations Prerenal BRANDIN probably secondary to renal tubular stasis Elevated creatinine Continued to monitor BMP Patient's clinical condition improved she is getting discharged home in stable condition. She has been afebrile. Patient is seen and examined on the day of discharge discharge instructions provided to the patient. All labs diagnostic workup and discharge plan discussed with the patient in detail before her discharge. All questions and concerns answered to the best of my professional medical knowledgePatient needs follow-up with PCP, adoption specialist/microcomputer support specialist in outpatient setting in 1-2 weeks. Patient is strongly advised to stop meth and tobacco and risks explained. Activity as tolerated. General-patient not in any acute distress, alert awake, ill-appearing , obese HEENT-atraumatic normocephalic, neck supple without elevated JVD, no thyromegaly or carotid bruit. No lymphadenopathy bilaterally. Eyes-no icterus or pallor seen in eyes Chest- decreased lung sounds to auscultation bilaterally over lung base, breathing nonlabored no tachypnea, no wheezing, Heart-S1-S2 normal, regular heart rate no murmur Abdomen bowel sounds positive on auscultation, soft nondistended nontender no guarding, no rigidity Skin no active skin rash Neurology-grossly intact, nonfocal alert awake oriented Extremity- 1 plus pedal edema bilaterally , able to move all 4 extremities Psychiatry - patient is not confused or agitated cooperated during physical examination *Problems/Diagnosis: (1) New onset of congestive heart failure Status: Acute Total Time Spent on D/C: > 30 Minutes Date of Service: Mar 14, 2025 Billing Provider: HERBERT WEBBER MD Common Visit Codes: 96186-DKI/OBS DISCH DAY >30min HERBERT WEBBER MD Mar 14, 2025 20:50
== END 2025-03-14 15:55 | disposition home or self-care (01) | DRG 194 ==
LOC: ER 16:19 → ED HOLD 20:20 → EDBEDREQ 21:32 → PCU 3S 21:52
PROVIDERS: ADMIT Internal Medicine Critical Care Medicine; ATTEND Internal Medicine
PROC: BW211ZZ Computerized Tomography (CT Scan) of Abdomen and Pelvis using Low Osmolar Contrast (ICD-10-PCS; principal; 2025-03-13)
DX: I50.31 Acute diastolic (congestive) heart failure (principal); N17.0 Acute kidney failure with tubular necrosis; I27.20 Pulmonary hypertension, unspecified; I50.810 Right heart failure, unspecified; E03.9 Hypothyroidism, unspecified; J44.9 Chronic obstructive pulmonary disease, unspecified; F15.90 Other stimulant use, unspecified, uncomplicated; Z98.891 History of uterine scar from previous surgery; Z91.199 Patient's noncompliance with other medical treatment and regimen due to unspecified reason; Z82.49 Family history of ischemic heart disease and other diseases of the circulatory system
CPT/HCPCS: 36415; 71045; 71250; 71275; 74177; 80048; 80061; 80305; 81001; 82550; 83036; 83605; 83735; 83880; 84439; 84443; 84484; 85025; 85379; 87040; 87081; 93005; 93306; 99285; G0378; J1644; J1938; Q9967

== ENCOUNTER 2025-04-12 13:30 | Emergency (ER) | payer MEDICAID ==
[~2025-04-12] VITALS: Ht 165.1 cm; Wt 93.2 kg
[~2025-04-12 13:30] MED LIST changes: +FURO20TA4 PO; -HYDR-4353 PO; +LEVO125T8 PO; +LISI10TA27 PO
[2025-04-12 13:40] VITALS: BP 135/80; PULSE 84; RESP 17; TEMP 97; O2SAT 94
--- NOTE | 2025-04-12 13:51 | ELECTROCARDIOGRAPH REPORT ---
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
--- NOTE | 2025-04-12 13:51 | Physician Documentation ---
History of Present Illness ~ Chief Complaint: Shortness of Breath Stated Complaint: SOB Time Seen by MD: 14:35 Primary Medical Doctor: [facility] HPI Patient reports in the emergency department for evaluation of shortness of Breath lower extremity swelling abdominal swelling. Patient reports a serous discharge from the hospital last month diagnosed with CHF. Patient reports that she has been taking Lasix but feels like it isn't working and her shortness of breath is increasing. Patient denies any chest pain nausea vomiting or any other cardiac-related symptoms. Primary complaints are shortness of breath and lower extremity swelli ng Day of Onset: Apr 12, 2025 Medication Reconciliation Allergies: Coded Allergies: Penicillins (Verified Allergy, Unknown, TONGUE SWELLING, 03/12/25) pregabalin (Verified Allergy, Unknown, hives, 03/12/25) Scheduled Furosemide (Furosemide), 1 TAB PO DAILY Furosemide* (Lasix*), 1 TAB PO BID Levothyroxine Sodium (Levothyroxine Sodium), 50 MCG PO DAILY Lisinopril (Lisinopril), 10 MG PO DAILY Past Medical History Past Medical History: No Pertinent History, Hypothyroidism, Thyroid (unspecified), Anxiety Past Surgical History: Patient History: CAD Alcohol Use: None Drug Use: marijuana Lives In: Home Review of Systems All Other Systems at this time: Reviewed and Negative ROS As stated above in the HPI, otherwise all systems are reviewed and negative. Physical Exam Vital Signs: Temperature: 97.0, Source: Temporal, Heart Rate: 84, Respiratory Rate: 17, BP: 135/80, Pulse Oximetry: 94, Weight: 93.180 Physical Exam General: Alert, no apparent distress. Respiratory: Lungs clear, no respiratory distress. Chest: No accessory muscle use. Cardiovascular: Regular rate and rhythm, no murmurs. Extremities: Normal range of motion, no deformity. mild swelling LE 1+ Neurologic: Oriented x4. Progress Results/Orders Results/Orders Vital Signs 04/12/25 13:40 Temp 97.0 Pulse 84 Resp 17 B/P (MAP) 135/80 Pulse Ox 94 Laboratory Tests Test 04/12/25 14:02 04/12/25 15:30 White Blood Count 8.9 Red Blood Count 4.70 Hemoglobin 14.7 Hematocrit 43.3 Mean Corpuscular Volume 92.2 Mean Corpuscular Hemoglobin 31.2 H Mean Corpuscular Hemoglobin Concent 33.9 Red Cell Distribution Width 13.9 Platelet Count 299 Mean Platelet Volume 7.1 L Neutrophils (%) (Auto) 64.9 Lymphocytes (%) (Auto) 26.2 Monocytes (%) (Auto) 6.3 Eosinophils (%) (Auto) 1.3 Basophils (%) (Auto) 1.3 H Neutrophils # (Auto) 5.8 Lymphocytes # (Auto) 2.3 Monocytes # (Auto) 0.6 Eosinophils # (Auto) 0.1 Basophils # (Auto) 0.1 CBC Comment Sodium Level 140 Potassium Level 4.2 Chloride Level 107 Carbon Dioxide Level 27.5 Anion Gap 6 L Blood Urea Nitrogen 15 Creatinine 1.04 H Estimated GFR/1.73 m2 56 BUN/Creatinine Ratio 14.4 Glucose Level 96 Calcium Level 9.3 Total Bilirubin 0.3 Aspartate Amino Transf (AST/SGOT) 25 Alanine Aminotransferase (ALT/SGPT) 33 Alkaline Phosphatase 90 Troponin I High Sensitivity 12 Pro-B-Type Natriuretic Peptide 935 H Total Protein 7.1 Albumin 3.5 Globulin 3.6 Albumin/Globulin Ratio 1.0 L Lipase 61 Chemistry Comments Urine Specimen Description Non-specified Urine Color Straw Urine Clarity Slightly cloudy Urine pH 6.0 Urine Specific [place] 1.010 Urine Protein Negative Urine Glucose (UA) Negative Urine Ketones Negative Urine Occult Blood Negative Urine Nitrite Negative Urine Bilirubin Negative Urine Urobilinogen 0.2 Urine Leukocyte Esterase Trace H Urine RBC 0-2 Urine WBC 5-10 H Urine Squamous Epithelial Cells Few Urine Bacteria 1+ Urine Culture Indicated Indicated Volume Urine Centrifuged 10 ml Urine HCG, Qualitative Negative Urine Comment Urine Opiates Screen Negative Urine Methadone Screen Negative Urine Fentanyl Screen Negative Urine Barbiturates Screen Negative Urine Phencyclidine Screen Negative Urine Amphetamines Screen Negative Urine Benzodiazepines Screen Negative Urine Cocaine Screen Negative Urine Cannabinoids Screen Positive Drug Screen Comment Microbiology Date/Time Source Procedure Growth Status 04/12/25 16:08 Urine Nonspecified Urine Culture - Preliminary Culture received. Resulted Medical Decision Making Findings Patient appears to be turning her life around after a using illicit substances which nduced CHF and cardiomyopathy. Currently is hemodynamically stable and shows no signs of acute illness. However she does have some increased lower extremity swelling. Feel it is prudent to increase her Lasix to 20 b.i.d. in combination with taking potassium as directed to help with her symptoms. Being followed in the outpatient setting and presents as a good historian and a good candidate for following up. This time going to discharge her for further outpatient evaluation. Differential Dx:Considerations: Include: anxiety, asthma, bronchitis, cardiogenic shock, CHF, COPD, dysrhythmia, hypertension, accelerated, hypertension, essential, hypertension, malignant, hyperventilation, hyponatremia, myocardial infarction, panic attack, pneumonia, pneumonitis, pneumothorax, PSVT, pulmonary embolism, respiratory distress, respiratory failure, sinusitis, upper resp. infection, other Departure Disposition: HOME / SELF CARE / HOMELESS Impression: Primary Impression: Acute on chronic systolic heart failure Condition: Improved Referrals: NO PRIMARY CARE PROVIDER (PCP) Prescriptions Furosemide* (Lasix*) 20 Mg Tablet 1 TAB PO BID for 30 Days, #60 TAB Prov: HAI SAINI NP 04/12/25 Signature Scribe Signature: f Attestation: Scribed for Hai Saini Proposal Analyst by Hai Epstein NP . 04/12/25 16:04 JUVENAL ARRIAGA Apr 12, 2025 13:51 HAI SAINI NP Apr 12, 2025 15:52
[2025-04-12 14:13] LABS: MEAN PLATELET VOLUME 7.1 FL (7.4-10.4); RED CELL DISTRIBUTION WIDTH 13.9 % (11.5-14.5)
--- NOTE | 2025-04-12 14:16 | RADIOLOGY REPORT ---
DI CHEST,TWO VIEWS CLINICAL HISTORY: CHEST PAIN COMPARISON: CT CTA CHEST PE W/ IV CONTRAST on DOS: 03/13/25, CT CT CHEST on DOS: 03/13/25, DI CHEST,SINGL E VIEW on DOS: 03/12/25 TECHNIQUE: Frontal and lateral view of the chest was obtained FINDINGS: Lines and Tubes: None Lungs: No focal consolidation. Pleura: No effusion. No pneumothorax. Cardiomediastinal contours: Unremarkable Bones: No acute osseous abnormality. IMPRESSION: No acute cardiopulmonary disease.
[2025-04-12 14:31] LABS: CREATININE 1.04 MG/DL (0.40-0.90); TOTAL CARBON DIOXIDE 27.5 MMOL/L (24-32); eCRCL 59 ML/MIN; eGFR 56 ML/MIN
[2025-04-12 14:39] LABS: PRO BRAIN NATRIURETIC PEPTIDE 935 PG/ML (0-125)
[2025-04-12 15:57] LABS: LEUKOCYTE ESTERASE ,URINE TRACE (Neg); NITRITES, URINE NEGATIVE (Neg); OCCULT BLOOD,URINE NEGATIVE (Neg); URINE HCG NEGATIVE (NEG)
[2025-04-12 16:00] LABS: UA COLLECTION TYPE NON-SPECIFIED
[2025-04-12 16:03] LABS: SQUAMOUS EPITHELIAL CELL,UR FEW /LPF (FEW); URINE AMPHETAMINE SCREEN NEGATIVE (Neg); URINE BARBITUATE SCREEN NEGATIVE (Neg); URINE BENZODIAZEPINES SCREEN NEGATIVE (Neg); URINE CANNABINOID SCREEN POSITIVE (Neg); URINE COCAINE SCREEN NEGATIVE (Neg); URINE METHADONE SCREEN NEGATIVE (Neg); URINE OPIATE SCREEN NEGATIVE (Neg); URINE PHENCYCLIDINE SCREEN NEGATIVE (Neg)
[2025-04-12] MEDS ORDERED: FURO-150 PO (16:03)
== END 2025-04-12 16:22 | disposition home or self-care (01) ==
LOC: ER 13:31
DX: I50.23 Acute on chronic systolic (congestive) heart failure (principal); F12.90 Cannabis use, unspecified, uncomplicated; I25.10 Atherosclerotic heart disease of native coronary artery without angina pectoris; Z88.0 Allergy status to penicillin; Z88.8 Allergy status to other drugs, medicaments and biological substances; Z79.899 Other long term (current) drug therapy
CPT/HCPCS: 36415; 71046; 80053; 80305; 81001; 81025; 83690; 83880; 84484; 85025; 87088; 93005; 99285